=== PATIENT | male | born 1975 | race Hispanic/Latino ===

== ENCOUNTER 2025-06-11 02:53 | Emergency (ER) | payer OTHER ==
[~2025-06-11] VITALS: Ht 170.2 cm; Wt 83.9 kg
--- NOTE | 2025-06-11 04:49 | HMCIMG ---
EXAM: CR Right clavicle, 2 views. CLINICAL HISTORY: Injury. COMPARISON: None provided. FINDINGS: No acute fracture or aggressively appearing osseous lesion. 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 The soft tissues are unremarkable. IMPRESSION: No acute bony changes. Moderate acromioclavicular joint arthropathy. /[place]
--- NOTE | 2025-06-11 05:22 | ERN ---
ED Note History of Present Illness Stated Complaint: POSSIBLE DISLOCATED CLAVICLE (RIGHT) Chief Complaint: Clavicle Injury Time Seen by MD: 03:16 Dictation: This is a 49-year-old correction inmate who was brought in by correctional officers for evaluation of swelling in the right clavicle area. Apparently patient was sleeping and fell off his bunker on the right side of the shoulder. As he tried to pick himself up he heard a pop and a swelling and hence he was brought in for evaluation. No loss of consciousness. No other injuries. No chest pain pressure PND orthopnea. No cough sputum or hemoptysis. No headache blurred vision diplopia. Temperature 98.9 pulse 69 respirations 18 blood pressure 134/88 with a pulse oximetry of 99% on room air History of prediabetes Allergies: Coded Allergies: No Known Drug Allergies (Verified Allergy, 07/21/13) Past Medical History Past Medical History: No Pertinent History Surgical History: None Family History: Negative Social History: Negative RN Note Reviewed/Agreed w/PFSH: Yes Review of System Dictation Constitutional: Negative for fever,chills, and weight loss Eyes: Negative for injury, pain,redness, and discharge ENT: Negative for injury,pain or swelling Cardiovascular: Negative for chest pain, palpitations, and edema right sternoclavicular area bony swelling and deformity pain and tenderness at the sternoclavicular joint. No obvious bruising reported patient's arms are in shackles in the front Respiratory: Negative for shortness of breath, cough, and wheezing, Abdomen/GI: Negative for abdominal pain, nausea, vomiting, diarrhea, and constipation Back: Negative for injury and pain : Negative for injury, bleeding and discharge MS/Extremity: Negative for injury and deformity Skin: Negative for rash, and discoloration Neuro: Negative for headache, weakness, numbness, tingling, and seizure Psych: Negative for suicide ideation, homicidal ideation, and hallucinations Initial Vital Sign VS Vital Signs Date Time Temp Pulse Resp B/P (MAP) Pulse Ox O2 Delivery O2 Flow Rate FiO2 06/11/25 02:55 99.0 69 18 134/88 99 Room Air 0 06/11/25 03:00 21 Physical Exam Dictation General: awake, alert, NAD Head/Face: Normocephalic, atraumatic Eyes: PERRL, EOMI, vision at baseline ENT: oral cavity clear, TMs clear, no signs of infection Neck: Trachea midline, supple, no nuchal rigidity Cardiovascular: RRR, normal S1/S2, No MRGs, no JVD right side a bulge in the front of the chest near the sternoclavicular joint noted. There has been in tenderness to palpation. There is no evidence of any obvious bruising that I could notice Respiratory: CTAB, no respiratory distress, No rales or wheezes Abdomen: Soft, non-tender, non-distended, normal bowel sounds, no guarding or rebound. Skin: Warm, dry, normal turgor, no rash MS/Extremity: Pulses equal, no cyanosis, neurovascular intact, FROM Neuro: COAx4, GCS 15, strength 5/5, CN 2-12 intact, normal cerebellar exam, normal gait, Psych: Normal behavior, mood, and affect normal Extremities-trace edema without any palpable cords, Homans sign is negative Results (Laboratory/Radiology) Labs Reviewed?: Yes X-RAY Comment: REASON: INJURY ORDERING PHYSICIAN: FAB ANDREWS MD PROCEDURE: CLAVI RT - CLAVICLE RIGHT EXAM: CR Right clavicle, 2 views. CLINICAL HISTORY: Injury. COMPARISON: None provided. FINDINGS: No acute fracture or aggressively appearing osseous lesion. 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 The soft tissues are unremarkable. IMPRESSION: No acute bony changes. Moderate acromioclavicular joint arthropathy. /[place] DICTATED BY: MARYAN GRIGSBY Jr., MD DATE: 06/11/25547 ELECTRONICALLY SIGNED BY: MARYAN GRIGSBY Jr., MD DATE: 06/11/25547 CT Scan Comment: REASON: right sternoclavicular joint dislocation ORDERING PHYSICIAN: FAB ANDREWS MD PROCEDURE: CHEST WO - CT CHEST W/O CONTRAST EXAM: Non-contrast CT examination of the chest CLINICAL HISTORY: Right sternoclavicular joint dislocation. TECHNIQUE: Thin collimated axial CT images of the chest were obtained, with sagittal and coronal reformatted images also submitted. A CT scan is done according to ALARA (As Low as Reasonably Achievable). CONTRAST USED: None. COMPARISON: None provided. FINDINGS: No pulmonary contusion, effusion, pneumothorax, or mass. Mildly elevated right hemidiaphragm with mild subsegmental atelectasis in the right lung base. No pericardial effusion. The cardiac size is within normal limits. Mild calcific atherosclerotic disease in the aortic arch and coronary arteries. The thoracic aorta and pulmonary artery diameters are within normal limits. No pathological lymphadenopathy. No focal thyroid abnormality is evident. The included upper abdominal organs are within normal limits. No acute fracture is evident. Partially visualized intramedullary nail in the left humerus. Old healed right posterior rib fracture. Mild degenerative osseous changes. There are mild degenerative changes around the medial end of the right clavicle. No significant sternoclavicular joint dislocation bilaterally. IMPRESSION: There are mild degenerative changes around the medial end of the right clavicle. No significant sternoclavicular joint dislocation bilaterally. No acute cardiopulmonary process. /[place] DICTATED BY: MARYAN GRIGSBY Jr., MD DATE: 06/11/25646 ELECTRONICALLY SIGNED BY: MARYAN GRIGSBY Jr., MD DATE: 06/11/25646 ED Course ED Course Orders Procedure Category Date Status Time Clavicle Right RAD 06/11/25 Resulted 03:01 Ketorolac PHA 06/11/25 Complete Tromethamine 30mg/Ml 03:30 Ct Chest W/O Contrast CT 06/11/25 Resulted 03:56 Current Medications Medications (Trade) Dose Ordered Sig/Chris Route PRN Reason Start Time Stop Time Status Last Admin Dose Admin Ketorolac Tromethamine (toRADol) 30 mg ONCE ONCE IM 06/11/25 03:30 06/11/25 03:31 DC 06/11/25 03:51 Vital Signs Date Time Temp Pulse Resp B/P (MAP) Pulse Ox O2 Delivery O2 Flow Rate FiO2 06/11/25 05:55 98.2 72 16 134/79 98 Room Air* 0 21 06/11/25 05:00 98.4 79 17 130/75 98 Room Air* 0 21 06/11/25 04:00 98.2 75 18 138/78 98 Room Air* 0 21 06/11/25 03:00 98.1 78 16 134/77 98 Room Air* 0 21 06/11/25 02:55 99.0 69 18 134/88 99 Room Air 0 We will perform , advanced imaging and administer medications according to the patient's complaint. Once the results are available, will review and personally interpreted the labs to rule out any acute life-threatening emergency the trach require immediate intervention and treatment. I will then re-evaluate the patient after treatment and diagnostic exams have return to determine whether the patient requires any further testing, can safely be discharged home or need further admission to hospital for additional treatment and evaluation. Medical Decision Making MDM Differential diagnosis: Anterior dislocation of the sternoclavicular joint, posterior dislocation of the sternoclavicular joint, fracture of the endplate of clavicle, injury to the cartilage This is a 49-year-old correction inmate who was brought in by correctional officers for evaluation of swelling in the right clavicle area. Apparently patient was sleeping and fell off his bunker on the right side of the shoulder. As he tried to pick himself up he heard a pop and a swelling and hence he was brought in for evaluation. No loss of consciousness. No other injuries. No chest pain pressure PND orthopnea. No cough sputum or hemoptysis. No headache blurred vision diplopia. Temperature 98.9 pulse 69 respirations 18 blood pressure 134/88 with a pulse oximetry of 99% on room air History of prediabetes Rationale: Tests considered and ordered secondary to shared decision making include: Previous outside records reviewed: Old ER visits. Risk of complication and/or morbidity or mortality of patient management: None Medications-Per medication reconciliation Need for hospitalization: Patient does not meet criteria for hospitalization. Need for emergency major/minor surgery: No There are no social concerns with this patient. Prescription drug management Prescriptions will include symptomatic care Patient's prior external medical records from other ER visits were reviewed by me as indicated. Prior testing and results from previous visits were reviewed. Prior tests were taken into account with medical decision making and resource utilization, independent historian/historians were used to obtain complete medical history. I independently interpreted the test that were performed, results were reviewed by me and considered findings on radiology if ordered. Medical management and examination interpretation discussions were had by me with other qualified healthcare professionals as indicated for the patient's care. Problem List Problem List: (1) Pain of right clavicle (2) Sprain of right sternoclavicular joint DX & DISP Disposition: Discharge Departure Impression: Primary Impression: Pain of right clavicle Additional Impression: Sprain of right sternoclavicular joint Condition: Stable Additional Instructions: Patient and the caregiver have been informed of all the diagnostic tests and the imaging conducted during the today's visit to the emergency room and has verbalized understanding of the results I have personally reviewed and interpreted all diagnostic exams performed here in the ER today as well as the vital signs documented by the nursing staff. The patient is now being discharged to law enforcement and should follow up with the primary care physician or the specialist as directed by the ER staff. Referrals: SELF,REFERRAL (PCP) FAB ANDREWS MD Jun 11, 2025 05:22
--- NOTE | 2025-06-11 05:48 | HMCIMG ---
EXAM: Non-contrast CT examination of the chest CLINICAL HISTORY: Right sternoclavicular joint dislocation. TECHNIQUE: Thin collimated axial CT images of the chest were obtained, with sagittal and coronal reformatted images also submitted. A CT scan is done according to ALARA (As Low as Reasonably Achievable). CONTRAST USED: None. COMPARISON: None provided. FINDINGS: No pulmonary contusion, effusion, pneumothorax, or mass. Mildly elevated right hemidiaphragm with mild subsegmental atelectasis in the right lung base. No pericardial effusion. The cardiac size is within normal limits. Mild calcific atherosclerotic disease in the aortic arch and coronary arteries. The thoracic aorta and pulmonary artery diameters are within normal limits. No pathological lymphadenopathy. No focal thyroid abnormality is evident. The included upper abdominal organs are within normal limits. No acute fracture is evident. Partially visualized intramedullary nail in the left humerus. Old healed right posterior rib fracture. Mild degenerative osseous changes. There are mild degenerative changes around the medial end of the right clavicle. No significant sternoclavicular joint dislocation bilaterally. IMPRESSION: There are mild degenerative changes around the medial end of the right clavicle. No significant sternoclavicular joint dislocation bilaterally. No acute cardiopulmonary process. /[place]
[2025-06-11 05:55] VITALS: BP 134/79; PULSE 72; RESP 16; TEMP 98.2; O2SAT 98
== END 2025-06-11 06:05 ==
LOC: EEVIPCON 02:53 → EDH 02:53
DX: S43.61XA Sprain of right sternoclavicular joint, initial encounter (principal); W17.89XA Other fall from one level to another, initial encounter; Y93.84 Activity, sleeping; Y92.89 Other specified places as the place of occurrence of the external cause; Y99.8 Other external cause status
CPT/HCPCS: 99285; 71250; 73000; 96372; J1885; 29105